=== PATIENT | female | born 1965 | race Caucasian/White ===

== ENCOUNTER 2024-08-02 13:39 | Observation (INO) | payer OTHER ==
[~2024-08-02] VITALS: Ht 152.4 cm; Wt 90.0 kg
[2024-08-02] VITALS (21 sets, daily range): BP systolic 114–166; BP diastolic 66–116
--- NOTE | 2024-08-02 13:41 | NUR ---
PATIENT TO ROOM 13 VIA EMS
[2024-08-02] MEDS ORDERED: NITROGLYCERIN 0.4 MG/TAB SL ONE (14:05)
--- NOTE | 2024-08-02 14:21 | NUR ---
Reassessment of patient completed. No distress noted.
[2024-08-02 14:38] LABS: BASO% 0.3 % (0-3); EOS% 2.3 % (0-8); HEMATOCRIT 42.3 % (37.0-47.0); HEMOGLOBIN 13.1 g/dl (12.0-16.0); IMMATURE GRANULOCYTES 0.2 % (0.0-5.0); LYMPH% 20.6 % (15-41); MEAN CELL VOLUME 99.8 fL CALC (80.0-100.0); MEAN CORPUSCULAR HGB 30.9 pG CALC (26.0-32.0); MONO% 8.1 % (2-13); NEUT# 6.15 thou/uL (2.00-7.15); NEUT% 68.5 % (42-76); RED BLOOD COUNT 4.24 mill/uL (4.20-5.60); RED CELL DISTRI WIDTH 14.4 % (11.5-15.5)
[2024-08-02 14:56] LABS: ALBUMIN 4.1 g/dL (3.2-5.0); ALKALINE PHOSPHATASE 169 u/l (38-126); ANION GAP 15 (6-22 (CALC)); BILIRUBIN, TOTAL 0.7 mg/dL (0.02-1.3); BUN 14 mg/dL (7-17); BUN/CREATININE RATIO 27 (12-20 (CALC)); CARBON DIOXIDE 23 mmol/l (22-30); CHLORIDE 107 mmol/l (95-108); CREATININE 0.5 mg/dL (0.5-1.0); ESTIMATED GFR 109 ML/MIN (>=90 (CALC)); LIPASE 50 u/l (23-300); POTASSIUM 3.4 mmol/l (3.5-5.1); SGOT/AST 28 u/l (14-36); SODIUM 141 mmol/l (137-146); TOTAL PROTEIN 6.6 g/dL (6.3-8.2)
[2024-08-02] MEDS ORDERED: Iopamidol 370 (Isovue) 76% 100 ML SDV IV ONE (15:20)
--- NOTE | 2024-08-02 15:57 | NUR ---
FAMILY REMAINS BEDSIDE WITH PATINET, PATIENT DENIES ANY NEEDS CURRENTLY
[2024-08-02] MEDS ORDERED: OMEPRAZOLE DR40 MG PO (15:59)
[2024-08-02 16:01] LABS: URINE BILIRUBIN - DIPSTICK Negative (NEGATIVE); URINE BLOOD DIPSTICK Trace-lysed (NEGATIVE); URINE COLOR Yellow; URINE GLUCOSE - DIPSTICK Negative (NEGATIVE); URINE KETONE Trace mg/dL (NEGATIVE); URINE LEUK ESTERASE Negative (NEGATIVE); URINE NITRITE - DIPSTICK Negative (Negative); URINE PROTEIN - DIPSTICK Negative (NEG-TRACE); URINE SPECIFIC GRAVITY >=1.030
--- NOTE | 2024-08-02 18:16 | NUR ---
NURSE TO NURSE REPORT COMPLETED WITH MEDICAL/SURGICAL NURSE
--- NOTE | 2024-08-02 18:38 | NUR ---
PATIENT ARRIVED TO [place] FROM ED PATIENT AMBULATED TO BED; ROOM AIR; BREATHING UNLABORED AND EVEN; WEIGHT AND VITALS WAS TAKEN; VITALS STABLE; FAMILY AT BEDSIDE WITH PATIENT; NO S.S OF DISTRESS AT THIS TIME; IV SITE CLEAN AND INTACT SALINE LOCKED AT THIS TIME; CALL LIGHT WITHIN REACH,VERBALIZED UNDERSTANDING ON HOW TO USE, PERSONAL ITEMS WITHIN REACH,,BED IN LOWEST POSTION; SAFETY MEASURES IN PLACE
[2024-08-02] MEDS ORDERED: Zaleplon 5 MG/CAP PO PRN (19:45)
[2024-08-02] MEDS ORDERED: ACETAMINOPHEN 325 MG/TAB PO PRN (19:45)
[2024-08-02] MEDS ORDERED: MAGNESIUM HYDROXIDE 30 ML UDC PO PRN (19:45)
[2024-08-02] MEDS ORDERED: ENOXAPARIN SODIUM 40 MG/0.4 ML SYR SC SCH (21:00)
--- NOTE | 2024-08-02 22:00 | NUR ---
PT LAYING DOWN ON BED. ALERT AND ORIENTED X3. ASSESMENT COMPLETED AT THIS TIME. REPORT RECEIVED FROM [facility] CHIEF OF INTERNAL MEDICINE. RESPS ARE EVEN AND UNLABORED. DENIES ANY DIFFICULTY WITH BREATHING. TELE MONITOR IN PLACE SHOWING SR-85. 20 G IV N HER LEFT A/C NOTED FLUSHES WELL WITHOUT ANY ABNORMALITIES. DENIES ANY CHEST PAIN. BED IN LOWETS POSITION; CALL LIGHT IN RECAH AND SAFETY PRECAUTIONS IN PLACE.
[2024-08-03 00:19] VITALS: BP 116/61
[2024-08-03 00:28] VITALS: BP 116/61
--- NOTE | 2024-08-03 01:09 | NUR ---
PT RESTING ON BED. REPS ARE EVEN AND UNLABORED. CALL LIGHT IN REACH AND SAFETY PRECAUTIONS IN PLACE.
--- NOTE | 2024-08-03 04:11 | NUR ---
PT RESTING IN SUPINE POSITION. NO SIGNS OF DISTRESS. RESPS ARE EVEN AND UNALBORED. TELE MONITOR IN PLACE SHOWING SR-73. CALL LIGHT IN REACH AND SAFETY PRECAUTIONS IN PLACE.
[2024-08-03 06:17] LABS: CHOLESTEROL HDL RATIO 3.5 (<4.4 (CALC))
[2024-08-03] MEDS ORDERED: NITROGLYCERIN 0.4 MG/TAB SL PRN (06:30)
[2024-08-03] MEDS ORDERED: MORPHINE SULFATE 4 MG/ML VIAL IV PRN (06:30)
[2024-08-03 07:03] VITALS: BP 139/70
--- NOTE | 2024-08-03 07:05 | NUR ---
BOOKED A CADIOLOGY CONSULT WITH DR SHERWOOD VIA THE [facility] AT 0705 HRS.
--- NOTE | 2024-08-03 07:07 | NUR ---
director of patient safety at bedside via [facility] discussing plan of care with pt at this time.
--- NOTE | 2024-08-03 07:17 | NUR ---
PT IS AOX4, RESPIRATIONS ARE EVEN AND UNLABORED, LUNGS ARE CLEAR, BOWEL SOUNDS ARE ACTIVE IN ALL 4 QUADRANTS, PEDAL PULSES ARE PALPABLE TO TOUCH. PT REPORTS MID STERNUM "DULL PRESSURE" AT A 4 ON A 0-10 PAIN SCALE.
[2024-08-03] MEDS ORDERED: PANTOPRAZOLE SODIUM Sesquihydr 40 MG/TAB PO SCH (09:00)
[2024-08-03] MEDS ORDERED: ASPIRIN 81 MG/TAB PO SCH (09:00)
[2024-08-03] MEDS ORDERED: ALUM & MAG HYDROX-SIMETHICONE 30 ML PO SCH (09:00)
[2024-08-03 10:51] VITALS: BP 137/79
[2024-08-03] MEDS ORDERED: DICYCLOMINE HCL 10 MG/CAP PO PRN (11:40)
[2024-08-03] MEDS ORDERED: DICYCLOMINE HYD10 MG PO (11:46)
--- NOTE | 2024-08-03 13:47 | NUR ---
REVIEWED DISCHARGE INSTRUCTIONS WITH PT, ANSWERED ANY QUESTIONS, REMOVED IV, REMOVED TELE AND PLACED IT IN THE RETURN BIN AT NURSES STATION.
--- NOTE | 2024-08-03 13:51 | NUR ---
PT LEFT THE UNIT WITH BELONGINGS IN HAND.
[2024-08-03] MEDS ORDERED: ATORVASTATIN CALCIUM 40 MG/TAB PO SCH (21:00)
== END 2024-08-03 13:48 | disposition home or self-care (01) | DRG 313 ==
LOC: ED 13:39 → ED-I 16:50 → ED 17:28 → MS2 17:29
PROVIDERS: Nurse Practitioner; ADMIT Internal Medicine; ATTEND Internal Medicine
DX: R07.89 Other chest pain (principal); I10 Essential (primary) hypertension; K22.4 Dyskinesia of esophagus; R73.03 Prediabetes; K21.9 Gastro-esophageal reflux disease without esophagitis; K44.9 Diaphragmatic hernia without obstruction or gangrene; E66.812 Obesity, class 2; Z68.38 Body mass index [BMI] 38.0-38.9, adult; Z85.038 Personal history of other malignant neoplasm of large intestine; Z95.828 Presence of other vascular implants and grafts
CPT/HCPCS: G0378; J1650; Q9967